=== PATIENT | female | born 1975 | race Caucasian/White ===

== ENCOUNTER 2024-01-08 10:20 | Day surgery (SDC) | payer BC ==
[2024-01-06 16:15] VITALS: BMI 27.6
[2024-01-06 16:53] LABS: BHCG - Serum Negative (NEGATIVE); Pregs Control Background? CLEAR/WHITE (CLR/WHITE); Pregs Control Bar Appear? YES (CONTROL BAR)
[2024-01-06 16:54] LABS: Hematocrit 37.1 % (34.9-44.5); Hemoglobin 11.3 g/dL (12.0-15.5); Mean Corpuscular HGB CONC 30.5 g/dL (32.0-36.0); Mean Corpuscular Hemoglobin 24.4 pg (27.0-33.0); Mean Platelet Volume 9.3 fL (7.4-10.4); Platelet Count 392 10x3/uL (150-450); RBC Distribution Width 15.2 % (11.5-14.5); Red Blood Cell (RBC) Count 4.64 10x6/uL (3.90-5.03); White Blood Cell (WBC) Count 7.9 10x3/uL (3.5-10.5)
[2024-01-08] MEDS ORDERED: CeleCOXIB 100 MG CAP ONE (10:51)
[2024-01-08] MEDS ORDERED: fentaNYL 50 mcg/mL 1 mL Vial ONE (11:42)
[2024-01-08] MEDS ORDERED: PROPOFOL 40 ML ONE (11:42)
[2024-01-08] MEDS ORDERED: Lidocaine 1% PF 5 ML VIAL ONE (11:43)
[2024-01-08] MEDS ORDERED: CEFAZOLIN 2 GM VIAL ONE (11:49)
[2024-01-08] MEDS ORDERED: Midazolam HCl 2 mg/2 ml Vial ONE (11:56)
[2024-01-08] MEDS ORDERED: Dexamethasone 20 MG/5 ML VIAL ONE (12:04)
[2024-01-08] MEDS ORDERED: Ondansetron PF 4 MG/2 ML Vial ONE (12:04)
[2024-01-08] MEDS ORDERED: Ketorolac Tromethamine 30 MG (1 mL) VIAL ONE (12:27)
[2024-01-08] MEDS ORDERED: Meperidine HCl/PF 25 MG (1 mL) VIAL ONE (12:59)
[2024-01-08] MEDS ORDERED: HYDROcodone/Acetaminophen 5/325 mg Tablet ONE (13:22)
== END 2024-01-08 14:00 | disposition home or self-care (01) ==
LOC: CSHSDC 10:20
PROVIDERS: ATTEND Obstetrics & Gynecology
PROC: 0UDB8ZZ Extraction of Endometrium, Via Natural or Artificial Opening Endoscopic (ICD-10-PCS; principal; 2024-01-08)
DX: N88.2 Stricture and stenosis of cervix uteri (principal); J45.909 Unspecified asthma, uncomplicated; Z79.51 Long term (current) use of inhaled steroids; Z79.899 Other long term (current) drug therapy
CPT/HCPCS: 36415; 84703; 85027; 86850; 86900; 86901; 88305; J1100; J1885; J2175; J2250; J2405; J2704; J3010